=== PATIENT | male | born 1970 | race Caucasian/White ===

== ENCOUNTER 2018-03-14 14:41 | Emergency (ER) | payer MEDICARE, OTHER ==
[~2018-03-14] VITALS: Ht 172.7 cm; Wt 75.6 kg
[2018-03-14 15:08] LABS: CLARITY,URINE CLEAR (Clear); COLOR,URINE YELLOW (Yellow); GLUCOSE, URINE NEGATIVE (Neg); KETONES,URINE NEGATIVE (Neg); LEUKOCYTE ESTERASE ,URINE NEGATIVE (Neg); NITRITES, URINE NEGATIVE (Neg); OCCULT BLOOD,URINE NEGATIVE (Neg); PH,URINE 6.5 (4.8-8.0); PROTEIN,URINE NEGATIVE (Neg); UA COLLECTION TYPE CLN CATCH MIDSTREAM; UROBILINOGEN,URINE 0.2 E.U/dL (0.2-1.0)
[2018-03-14 15:33] LABS: BASOPHILS # (AUTO) 0.1 X10'3 (0-0.2); BASOPHILS % (AUTO) 0.6 % (0-1); EOSINOPHILS # (AUTO) 0.3 X10'3 (0-0.9); EOSINOPHILS % (AUTO) 1.7 % (0-6); HEMATOCRIT 43.7 % (42.0-52.0); HEMOGLOBIN 14.4 g/dl (14.0-17.9); LYMPHOCYTES % (AUTO) 11.7 % (21-51); MEAN CORPUSCULAR HEMOGLOBIN 29.4 PG (27.0-31.0); MEAN CORPUSCULAR VOLUME 88.9 FL (78-98); MEAN PLATELET VOLUME 8.9 FL (7.4-10.4); MONOCYTES % (AUTO) 6.3 % (2-12); NEUTROPHILS # (AUTO) 13.3 X10'3 (1.8-7.7); NEUTROPHILS % (AUTO) 79.7 % (42-75); PLATELET COUNT 264 X10'3 (140-440); RED BLOOD COUNT 4.92 X10'6 (4.70-6.10); RED CELL DISTRIBUTION WIDTH 13.7 % (11.5-14.5); WHITE BLOOD COUNT 16.7 X10'3 (4.5-11.0)
[2018-03-14 15:52] LABS: ALANINE AMINOTRANSFERASE 22 U/L (12-78); ALBUMIN 2.9 G/DL (3.4-5.0); ALBUMIN/GLOBULIN RATIO 0.6 (1.1-1.5); ALKALINE PHOSPHATASE 116 IU/L (46-116); ANION GAP 10 (8-16); ASPARTATE AMINO TRANSFERASE 13 U/L (10-37); BILIRUBIN,TOTAL 0.4 MG/DL (0.1-1.0); BLOOD UREA NITROGEN 11 MG/DL (7-18); BUN/CREATININE RATIO 12.9 (5.4-32.0); CALCIUM 8.6 MG/DL (8.5-10.1); CHLORIDE 99 MMOL/L (99-107); CREATININE 0.85 MG/DL (0.60-1.10); GLUCOSE 151 MG/DL (70-104); POTASSIUM 4.1 MMOL/L (3.5-5.1); SODIUM 134 MMOL/L (135-145); TOTAL CARBON DIOXIDE 25.2 MMOL/L (24-32); TOTAL PROTEIN 7.5 G/DL (6.4-8.2); eGFR > 90 ML/MIN
[2018-03-14 16:05] LABS: PROTHROMBIN TIME 10.3 SECONDS (9.0-12.0)
[2018-03-14 16:06] LABS: PARTIAL THROMBOPLASTIN TIME 30 SECONDS (22-32)
[2018-03-14] MEDS ORDERED: LIDOcaine 4% (40 mg/ml) topical solution 50ml TP ONE (16:45)
[2018-03-14] MEDS ORDERED: vancomycin/NS 1 GM ADD-VANTAGE 250 ML IV ONE (16:45)
[2018-03-14] MEDS ORDERED: CEPH500C5 PO (17:09)
[2018-03-14] MEDS ORDERED: SULF1TAB49 PO (17:09)
[2018-03-14 18:55] VITALS: BP 141/57
[2018-03-14] MEDS ORDERED: gentamicin 0.1% topical ointment 15gm TP SCH (20:00)
== END 2018-03-14 18:59 | disposition home or self-care (01) ==
LOC: ER 14:42
DX: L03.113 Cellulitis of right upper limb (principal); F15.90 Other stimulant use, unspecified, uncomplicated; F17.200 Nicotine dependence, unspecified, uncomplicated
CPT/HCPCS: 36415; 71045; 80053; 81003; 83605; 84145; 85025; 85610; 85730; 87040; 87070; 87077; 87186; 93005; 96365; 97597; 99285; J3370; 99284

== ENCOUNTER 2022-09-03 05:56 | Emergency (ER) | payer MEDICARE ==
[~2022-09-03] VITALS: Ht 177.8 cm; Wt 77.3 kg
[2022-09-03 06:03] VITALS: BP 125/85
[2022-09-03] MEDS ORDERED: SULF1TAB45 PO (07:29)
== END 2022-09-03 07:52 | disposition home or self-care (01) ==
LOC: ER 05:57
DX: L97.429 Non-pressure chronic ulcer of left heel and midfoot with unspecified severity (principal); F15.90 Other stimulant use, unspecified, uncomplicated; Z79.899 Other long term (current) drug therapy
CPT/HCPCS: 73630; 99283

== ENCOUNTER 2023-05-13 17:55 | Emergency (ER) | payer MEDICARE ==
[~2023-05-13] VITALS: Ht 177.8 cm; Wt 79.2 kg
[2023-05-13 18:18] LABS: BASOPHILS # (AUTO) 0.1 X10'3 (0-0.2); BASOPHILS % (AUTO) 1.4 % (0-1); EOSINOPHILS # (AUTO) 0.2 X10'3 (0-0.9); HEMOGLOBIN 15.3 g/dl (14.0-17.9); LYMPHOCYTES # (AUTO) 1.2 X10'3 (1.1-4.8); LYMPHOCYTES % (AUTO) 15.8 % (21-51); MEAN CORPUSCULAR HEMOGLOBIN 29.1 PG (27.0-31.0); MEAN CORPUSCULAR HGB CONC 33.3 g/dL (33.0-36.5); MEAN CORPUSCULAR VOLUME 87.5 FL (78-98); MEAN PLATELET VOLUME 9.3 FL (7.4-10.4); MONOCYTES # (AUTO) 0.3 X10'3 (0-0.9); MONOCYTES % (AUTO) 4.4 % (2-12); NEUTROPHILS # (AUTO) 5.5 X10'3 (1.8-7.7); NEUTROPHILS % (AUTO) 75.4 % (42-75); PLATELET COUNT 215 X10'3 (140-440); RED BLOOD COUNT 5.26 X10'6 (4.70-6.10); RED CELL DISTRIBUTION WIDTH 14.9 % (11.5-14.5); WHITE BLOOD COUNT 7.3 X10'3 (4.5-11.0)
[2023-05-13 18:39] LABS: ALBUMIN 3.3 G/DL (3.4-5.0); ANION GAP 8 (8-16); BLOOD UREA NITROGEN 15 MG/DL (7-18); BUN/CREATININE RATIO 17.9 (10.0-20.0); CHLORIDE 102 MMOL/L (99-107); CREATININE 0.84 MG/DL (0.60-1.10); GLUCOSE 156 MG/DL (70-104); POTASSIUM 4.1 MMOL/L (3.5-5.1); PRO BRAIN NATRIURETIC PEPTIDE 45 PG/ML (0-125); SODIUM 140 MMOL/L (135-145); TOTAL CARBON DIOXIDE 29.6 MMOL/L (24-32); eCRCL 107 ML/MIN; eGFR > 90 ML/MIN
[2023-05-13 22:00] VITALS: TEMP 98.2
[2023-05-13] MEDS ORDERED: NO HOME MEDS (22:36)
[2023-05-13] MEDS: LORazepam 1 MG tablet PO ONE (22:45)
[2023-05-13] MEDS: mag hydrox/Alum hydrox/simeth 30ml oral suspension PO ONE (22:46)
[2023-05-13] MEDS: ondansetron 4 MG/5 ML oral solution 5ml CUP PO ONE (22:46)
[2023-05-13] MEDS: LIDOcaine Viscous 15ml cup MM ONE (22:46)
[2023-05-13] MEDS: ketorolac trometh. 30mg/ml inj. IM ONE (22:47)
[2023-05-13 23:41] LABS: LIPASE > 375 U/L (16-77)
[2023-05-13 23:41] LABS: URINE AMPHETAMINE SCREEN POSITIVE (Neg); URINE BARBITUATE SCREEN NEGATIVE (Neg); URINE BENZODIAZEPINES SCREEN NEGATIVE (Neg); URINE CANNABINOID SCREEN NEGATIVE (Neg); URINE COCAINE SCREEN NEGATIVE (Neg); URINE METHADONE SCREEN NEGATIVE (Neg); URINE OPIATE SCREEN NEGATIVE (Neg); URINE PHENCYCLIDINE SCREEN NEGATIVE (Neg)
[2023-05-14] VITALS: BP 105/75; PULSE 84; RESP 18; O2SAT 100
== END 2023-05-14 00:47 | disposition left against medical advice (07) ==
LOC: ER 17:55
DX: R07.89 Other chest pain (principal)
CPT/HCPCS: 36415; 71045; 80048; 80305; 83690; 83880; 84484; 85025; 93005; 96372; 99285; J1885

== ENCOUNTER 2024-03-21 19:50 | Emergency (ER) | payer MEDICARE ==
[~2024-03-21] VITALS: Ht 180.3 cm; Wt 76.9 kg
[~2024-03-21 19:50] MED LIST: NO HOME MEDS
[2024-03-21 20:31] VITALS: BP 123/90; PULSE 100; TEMP 98.3; O2SAT 97
[2024-03-21] MEDS: HYDROcodone/acetaminophen 10/325mg tab PO ONE (21:09)
[2024-03-21 22:46] VITALS: RESP 14
[2024-03-21] MEDS: ketorolac trometh 30MG/ML vial 30 MG/ML VIAL IM ONE (22:46)
== END 2024-03-21 23:08 | disposition home or self-care (01) ==
LOC: ER 19:50
DX: G89.29 Other chronic pain (principal); M54.50 Low back pain, unspecified
CPT/HCPCS: 72100; 96372; 99284; J1885